=== PATIENT | male | born 1955 | race African-American/Black ===

== ENCOUNTER → 2016-08-31 | Outpatient (CLI) | payer OTHER ==
--- NOTE | 2016-08-31 12:53 | RAD ---
2 views of the right wrist without comparison for wrist pain. Findings: There is no fracture, dislocation, or acute osseous abnormality identified. Early degenerative changes are seen in the carpal metacarpal joints, as well as the first metacarpal phalangeal joint. No radiopaque foreign bodies are evident. Impression: 1. No acute osseous abnormalities of the right wrist.
--- NOTE | 2016-08-31 12:54 | RAD ---
2 views of the right hand without comparison for right hand pain. Findings: There is no fracture, dislocation, or acute osseous abnormality identified. Early degenerative changes are seen in some of the carpal metacarpal joints, as well as the first metacarpophalangeal joint. Remaining joints and soft tissues are grossly unremarkable. No radiopaque foreign bodies are seen. Impression: 1. No acute osseous abnormalities of the right hand.
--- NOTE | 2016-08-31 14:10 | RAD ---
Indication disability determination. AP and lateral views of the right elbow were obtained. No bony abnormality is seen. There is no significant joint fluid appreciated. Significant degenerative changes are not apparent on plain films
== END | disposition home or self-care (01) ==
LOC: RAD 11:42
DX: M79.641 Pain in right hand (principal); M25.531 Pain in right wrist; M25.521 Pain in right elbow
CPT/HCPCS: 73070; 73100; 73120